=== PATIENT | male | born 1975 | race African-American/Black ===

== ENCOUNTER 2016-07-19 09:49 | Emergency (ER) | payer OTHER ==
[2016-07-19 10:01] VITALS: BP 132/78
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
== END 2016-07-19 10:38 | disposition home or self-care (01) ==
LOC: JD.ED 09:49
DX: S63.502A Unspecified sprain of left wrist, initial encounter (principal); F17.210 Nicotine dependence, cigarettes, uncomplicated; X50.3XXA Overexertion from repetitive movements, initial encounter; Y93.H3 Activity, building and construction; Y99.0 Civilian activity done for income or pay
CPT/HCPCS: 99283

== ENCOUNTER 2017-03-11 16:45 | Emergency (ER) | payer OTHER ==
[2017-03-11 17:03] VITALS: BP 133/89
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
== END 2017-03-11 17:44 | disposition home or self-care (01) ==
LOC: JD.ED 16:45
DX: I88.9 Nonspecific lymphadenitis, unspecified (principal); K04.7 Periapical abscess without sinus; K02.9 Dental caries, unspecified; K05.10 Chronic gingivitis, plaque induced; F17.210 Nicotine dependence, cigarettes, uncomplicated
CPT/HCPCS: 99283

== ENCOUNTER 2018-12-07 10:56 | Emergency (ER) | payer OTHER ==
[2018-12-07 11:09] VITALS: BP 130/100; PULSE 82
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
--- NOTE | 2018-12-07 12:33 | US ---
Left lower extremity deep venous ultrasound: Duplex and color flow imaging was obtained of the left common femoral, proximal greater saphenous, superficial femoral, popliteal, posterior tibial and peroneal veins. Right common femoral vein was also evaluated. Comparison: No previous venous imaging. Findings: Normal phasic flow, augmentation and compression are seen. Impression: 1. No evidence of deep venous thrombosis within left lower extremity or within the right common femoral vein. Diagnostic code #1
--- NOTE | 2018-12-07 13:31 | CR ---
Left femur: AP and lateral views of the left femur were obtained. Comparison: No previous study. No fracture or other bony abnormality is seen. No radiopaque foreign objects are seen within the soft tissues. Slight soft tissue calcification is seen most likely dystrophic in etiology from old soft tissue injury. Impression: 1. Presumed dystrophic calcification. 2. Nothing acute is seen on left femur study. Diagnostic code #2
== END 2018-12-07 12:49 | disposition home or self-care (01) ==
LOC: JD.ED 10:56
DX: S76.312A Strain of muscle, fascia and tendon of the posterior muscle group at thigh level, left thigh, initial encounter (principal); F17.210 Nicotine dependence, cigarettes, uncomplicated; X58.XXXA Exposure to other specified factors, initial encounter
CPT/HCPCS: 73552-26-LT; 73552-LT; 93971-26-LT; 93971-LT; 99283; 99284-25